=== PATIENT | male | born 1970 | race Caucasian/White ===

== ENCOUNTER 2022-08-12 10:27 | Emergency (ER) | payer OTHER ==
[~2022-08-12] VITALS: Ht 180.3 cm; Wt 97.5 kg
[2022-08-12 10:30] VITALS: BP 130/98
[2022-08-12] MEDS ORDERED: NACL 0.9% 1,000 ML IV ONE (10:45)
[2022-08-12] MEDS ORDERED: NAPR-54 PO (11:19)
== END 2022-08-12 11:23 | disposition left against medical advice (07) ==
LOC: MED 10:27
DX: R55 Syncope and collapse (principal); M54.2 Cervicalgia
CPT/HCPCS: 93005; 99283

== ENCOUNTER 2024-01-07 08:24 | Day surgery (SDC) | payer OTHER ==
[~2024-01-07] VITALS: Ht 180.3 cm; Wt 111.1 kg
[~2024-01-07 08:24] MED LIST: NAPR-337 PO
[2024-01-07 09:18] LABS: BASOPHILS # (AUTO) 0.1 K/uL (0.00-0.22); BASOPHILS % (AUTO) 1.5 % (0.0-2.0); EOSINOPHILS # (AUTO) 0.3 K/uL (0-0.4); EOSINOPHILS % (AUTO) 4.1 % (0.0-4.0); HEMATOCRIT 41.1 % (36-52); HEMOGLOBIN 14.4 g/dL (12.0-18.0); LYMPHOCYTES # (AUTO) 1.2 K/uL (2.0-11.5); LYMPHOCYTES % (AUTO) 17.3 % (20.5-51.1); MEAN CORPUSCULAR HEMOGLOBIN 30 pg (27-31); MEAN CORPUSCULAR HGB CONC 35 g/dL (33-37); MEAN CORPUSCULAR VOLUME 85.4 fL (80-94); MONOCYTES # (AUTO) 0.5 K/uL (0.8-1.0); MONOCYTES % (AUTO) 7.7 % (1.7-9.3); NEUTROPHILS # (AUTO) 4.7 K/uL (1.8-7.7); NEUTROPHILS % (AUTO) 69.4 % (42.2-75.2); PLATELET COUNT (AUTO) 251 K/uL (140-450); RED BLOOD CELL COUNT(AUTO) 4.81 MIL/uL (4.20-6.10); RED CELL DISTRIBUTION WIDTH 13.5 % (11.6-13.7); WHITE BLOOD COUNT (AUTO) 6.8 K/uL (4.8-10.8)
[2024-01-07 09:35] LABS: ANION GAP 12.2 (8-16); CARBON DIOXIDE 28.6 mmol/L (21-32); POTASSIUM 3.8 mmol/L (3.5-5.1)
[2024-01-07 09:36] LABS: ALBUMIN 3.8 g/dL (3.4-5.0); CALCIUM 8.6 mg/dL (8.5-10.1)
[2024-01-07] MEDS ORDERED: MIDAZOLAM 5 MG/5 ML VIAL ONE (09:49)
[2024-01-07] MEDS ORDERED: PROPOFOL 200 MG/20 ML VIAL IV ONE (09:49)
[2024-01-07] MEDS ORDERED: LIDOCAINE 2% 100 MG/5 ML SYR IVP ONE (09:50)
[2024-01-07] MEDS ORDERED: SEVOFLURANE 250 ML BTL INH ONE (10:00)
[2024-01-07] MEDS ORDERED: LIDOCAINE 2% 100 MG/5 ML UJET TP ONE (10:05)
== END 2024-01-07 13:50 | disposition home or self-care (01) ==
LOC: MOR 08:24 → MMU 08:24 → MOR 13:50
PROVIDERS: ATTEND Internal Medicine Gastroenterology
DX: Z09 Encounter for follow-up examination after completed treatment for conditions other than malignant neoplasm (principal); Z86.010 Personal history of colon polyps; K62.1 Rectal polyp; Z79.899 Other long term (current) drug therapy; Z98.890 Other specified postprocedural states
CPT/HCPCS: 36415; 45385; 71045; 80053; 85025; 93005; J2001; J2250; J2704; J7120